=== PATIENT | female | born 1985 | race Caucasian/White ===

== ENCOUNTER 2019-03-13 22:38 | Emergency (ER) | payer SELFPAY ==
[~2019-03-13] VITALS: Ht 152.4 cm; Wt 115.7 kg
[2019-03-13] MEDS ORDERED: IBU600 M1 PO (23:53)
== END 2019-03-14 00:20 | disposition home or self-care (01) ==
LOC: ED 22:38
DX: S93.401A Sprain of unspecified ligament of right ankle, initial encounter (principal); J45.909 Unspecified asthma, uncomplicated; V89.2XXA Person injured in unspecified motor-vehicle accident, traffic, initial encounter; Y93.89 Activity, other specified; Y92.89 Other specified places as the place of occurrence of the external cause; Y99.8 Other external cause status